=== PATIENT | male | born 1955 | race Caucasian/White ===

== ENCOUNTER → 2018-03-01 | Outpatient (CLI) | payer OTHER ==
[2018-03-01 08:31] LABS: ANION GAP 12 (8-16); BLOOD UREA NITROGEN 18 mg/dl (7-20); CALCIUM 9.1 mg/dl (8.4-10.2); CARBON DIOXIDE 27 mmol/L (21-31); CHLORIDE 108 mmol/L (97-110); CREATININE 0.96 mg/dl (0.61-1.24); GLUCOSE 97 mg/dl (70-220); POTASSIUM 4.4 mmol/L (3.5-5.1); SODIUM 143 mmol/L (135-144)
== END | disposition home or self-care (01) ==
LOC: LAB 07:13
DX: R07.9 Chest pain, unspecified (principal)
CPT/HCPCS: 80048

== ENCOUNTER → 2018-03-15 | Outpatient (CLI) | payer OTHER ==
[2018-03-15] MEDS: NITROGLYCERIN AEROSOL (4.9 GM) (09:55)
[2018-03-15] MEDS: SOD CHLORIDE 0.9% 100 ML (10:10)
[2018-03-15] MEDS: IOHEXOL 100 ML (10:10)
== END | disposition home or self-care (01) ==
LOC: C/S 07:38
DX: R07.9 Chest pain, unspecified (principal)
CPT/HCPCS: 75574